=== PATIENT | female | born 1990 | race Caucasian/White ===

== ENCOUNTER 2018-08-16 12:42 | Outpatient (REF) | payer MEDICAID, SELFPAY ==
--- NOTE | 2018-08-16 10:30 | SKI_PTH ---
PATIENT: Priti Lee LOC: [facility] U#:[id number] AGE/SX: 28/F ROOM: RE08/16/[address]: Torri Llanos : 1990 BED: DIS: 08/16/2018 SPEC #: [id number] RECD: 08/17/18 12:39 STATUS: NIC REQ #: [id number] HELDER: 08/16/18 10:[address]: Torri Wilson DEPT: Surgical Specimen RECD BY: Stacy Barrera Tissues: 1 - SKIN BIOPSY(SHAVE/PUNCH) Procedures: SKIN LEVEL 4 Comments: [id number]
== END 2018-08-16 13:02 ==
LOC: NCHCN 12:42
PROVIDERS: PCP Nurse Practitioner Family; Visit Provider Nurse Practitioner Family
DX: L82.0 Inflamed seborrheic keratosis (principal)
CPT/HCPCS: 88305

== ENCOUNTER 2021-07-23 16:00 | Outpatient (REF) | payer MEDICAID, SELFPAY ==
[2021-07-23 21:41] LABS: Hemoglobin A1C 5.7 % (<5.7)
[2021-07-23 21:45] LABS: ALT 33 U/L (14-59); AST 19 U/L (15-37); Albumin 3.8 g/dL (3.4-5.0); Alkaline Phosphatase 95 U/L (46-116); Anion Gap 10.8 mmol/L (3-11); BUN 8 mg/dL (7-18); Bilirubin, Total 0.4 mg/dL (0.2-1.0); CO2 25.2 mmol/L (21.0-32.0); CREATININE 0.7 mg/dL (0.55-1.02); Calcium 9.5 mg/dL (8.5-10.1); Calculated LDL 102 mg/dL (<100); Chloride 103 mmol/L (98-107); Cholesterol 165 mg/dL (<200); Glucose 89 mg/dL (74-106); HDL Cholesterol 46 mg/dL (40-60); Potassium 4.4 mmol/L (3.5-5.1); Sodium 139 mmol/L (136-145); Total Protein 7.6 g/dL (6.4-8.2); Triglyceride 88 mg/dL (<150)
== END 2021-07-23 16:01 | disposition home or self-care (01) ==
LOC: NCHCN 16:00
PROVIDERS: PCP Nurse Practitioner Family; Visit Provider Nurse Practitioner Family
DX: E66.01 Morbid (severe) obesity due to excess calories (principal)
CPT/HCPCS: 80053; 80061; 83036